=== PATIENT | female | born 1990 | race Hispanic/Latino ===

== ENCOUNTER 2020-09-27 15:46 | Emergency (ER) | END 2020-09-27 17:15 | disposition home or self-care (01) | LOC: ERS 15:46 | DX: L55.0 Sunburn of first degree (principal) | CPT/HCPCS: 99281 ==

== ENCOUNTER 2020-10-16 08:01 | Emergency (ER) | payer SELFPAY ==
[2020-10-16] MEDS ORDERED: Boostrix 0.5 ML (Tdap) VIAL ONE (08:42)
[2020-10-16] MEDS ORDERED: Acetaminophen 500 MG TAB ONE (08:42)
[2020-10-16] MEDS ORDERED: Ibuprofen 800 MG TAB ONE (08:42)
[2020-10-16] MEDS ORDERED: Lidocaine 1% w/Epinephrine 1:100K 20 ML VIAL ONE (08:42)
== END 2020-10-16 10:03 | disposition home or self-care (01) ==
LOC: ERS 08:01
DX: S61.412A Laceration without foreign body of left hand, initial encounter (principal); W26.8XXA Contact with other sharp object(s), not elsewhere classified, initial encounter; E11.9 Type 2 diabetes mellitus without complications
CPT/HCPCS: 12001; 90471; 90715

== ENCOUNTER 2021-07-20 11:12 | Emergency (ER) | payer SELFPAY | END 2021-07-20 13:39 | disposition home or self-care (01) | LOC: ERS 11:12 | DX: S80.861A Insect bite (nonvenomous), right lower leg, initial encounter (principal); L03.115 Cellulitis of right lower limb; M79.604 Pain in right leg; E11.9 Type 2 diabetes mellitus without complications; W57.XXXA Bitten or stung by nonvenomous insect and other nonvenomous arthropods, initial encounter | CPT/HCPCS: 99282 ==